=== PATIENT | male | born 2000 ===

== ENCOUNTER 2020-08-24 23:35 | Emergency (ER) | payer MEDICAID, SELFPAY ==
[2020-08-25 00:19] VITALS: BP 109/66; PULSE 73; RESP 16; O2SAT 96; BMI 19.3
--- NOTE | 2020-08-25 00:43 | PC.NURSE ---
pt tolerated sutures to left thumb well, family at bedside.
--- NOTE | 2020-08-25 00:48 | ED.EXTPRO ---
HPI - Extremity Problem General Chief complaint: Extremity Injury, Upper Stated complaint: LAC ON FINGER/SEIZURE Time Seen by Provider: 08/25/20 00:19 Source: patient and family Limitations: no limitations History of Present Illness HPI Narrative: 20-year-old male presents with past medical history of seizure disorder laceration to the left lateral thumb with a syncopal episode and seizure. He was prying open frozen hamburger patties, the knife slipped and he cut his thumb. When he saw the laceration and the blood, he had a syncopal episode, when his mom will come up, patient had seizure like activity. Patient is up-to-date on his Tdap vaccine. Patient is alert oriented at this time, reports pain only to the thumb. He denies headache, neck pain, chest pain or pressure, palpitations, shortness breath, abdominal pain, abdominal distention, fevers, chills, nausea, vomiting, diarrhea, constipation, or any other concerning symptoms. MD Complaint: extremity pain Onset (ago): hour(s) (Within the hour of arrival) Pain Consistency: constant Location: left (thumb) Severity scale (1-10): 8 Quality: burning Radiation: none Exacerbating factors: range of motion and palpation Associated symptoms: denies other symptoms Related Data Previous Rx's Medication Instructions Recorded ibuprofen 600 mg PO Q8H PRN #20 tab 08/25/20 Allergies Allergy/AdvReac Type Severity Reaction Status Date / Time No Known Allergies Allergy Verified 08/25/20 00:27 [No Known Allergies*] Review of Systems Review of Systems: Constitutional: Positive syncopal episode, No Fever, No Chills ENT/Mouth: No Ear Pain, No Hoarseness, No sore throat Eyes: No Eye Pain, No Swelling, No Redness, No Foreign Body Cardiovascular: No Chest Pain, No SOB Respiratory: No Cough, No Dyspnea Gastrointestinal: No Nausea, No Vomiting, No Diarrhea, No abdominal Pain Genitourinary: No Dysuria, No Hematuria Musculoskeletal: positive left thumb pain, No Myalgias, No Joint Swelling Skin: Positive left lateral thumb laceration, No rash Neuro: No Weakness, No Numbness, No Paresthesias, No Loss of Consciousness, No Dizziness, No Headache Psych: No Anxiety/Panic, No Depression Heme/Lymph: no easy bruising, no Lymphadenopathy Endocrine: No Polyuria, No Polydipsia Yes all other systems are reviewed and are negative [facility] Past Medical History Attestation statement: The following information was validated with the patient. Source: old records reviewed Medical History Seizure Social History Social History Advance Directives: No Advance Directives Information Provided: No Physical Exam Vital Signs: Vital Signs: Last Vital Signs Pulse 73 08/25/20 00:19 Resp 16 08/25/20 00:19 BP 109/66 08/25/20 00:19 Pulse Ox 96 08/25/20 00:19 Body Mass Index 19.3 Appearance: Alert. Oriented X3. No acute distress. Eyes: Pupils equal, round and reactive to light. ENT: Pharynx normal. Neck: Normal inspection. Neck supple. CVS: Normal heart rate and rhythm. Pulses normal. Respiratory: No respiratory distress. Breath sounds normal. Abdomen: Soft and nontender. Skin: 2 cm laceration to the left thumb, Skin warm and dry. Normal skin color. Normal skin turgor. Extremities: No lower extremity edema. Neuro: No motor deficit. No sensory deficit. Course Course Course Narrative: 20-year-old male past medical history of seizure disorder presents with his mother at bedside for left thumb laceration, syncopal episode and seizure. Patient was trying to pry apart frozen hamburger patties with a knife, the knife slipped and cut the left side of his thumb. When he noted to be bleeding he had a syncopal episode. Mom's mother witnessed the whole event. Patient was unresponsive for about a minute, once he regained consciousness he had some seizure activity. Mother states that he has been worked up for seizure activity with a sleep study and was followed up by Cardiology. Patient is not on any seizure medications at this time. I feel the syncopal episode is related to vasovagal symptoms, discussed suture repair with mother and patient. Prepped and draped in sterile fashion, patient tolerated procedure well. Please refer to procedure note for full details. I will make a referral for Neurology. Mother verbalized understanding of and agrees to plan of care discharge home. Procedures Laceration Laceration 1: Site: hand Side (If applicable): left Size (cm): 2 Description: linear Depth: simple, single layer Local Anesthetic: lidocaine 2% Amount of anesthesia used (mL): 1 Pre-repair: wound explored, irrigated extensively and deep structures intact Skin layer closed with: nylon Size (cm): 5-0 Number of sutures: 3 Technique: simple, interrupted MDM - Extremity (Nontraumatic) MDM Narrative Medical decision making narrative: Laceration, vasovagal syncope, seizure Medical Records Attestation: I reviewed the patient's medical records. Discharge Plan Discharge Clinical Impression: Laceration, Syncope, vasovagal, Seizure Patient Disposition: Home, Self-Care Instructions: Syncope (ED), Finger Laceration (ED) Additional Instructions: Your child was evaluated for laceration, vasovagal syncope and seizure. Please return in 10 days to have sutures removed from the left thumb. I have referred you to neurology Dr. Tamez for suspected seizure disorder. Please call and request an appointment. Thank you for choosing this emergency department for evaluation. Please follow-up with primary care physician as needed. Return to the emergency department for any new, concerning, or worsening symptoms. Prescriptions: New ibuprofen 600 mg tablet 600 mg PO Q8H PRN (Reason: pain) Qty: 20 RF: 0 Referrals: Duncan Tamez MD [Physician] - 2 days (Seizure disorder, currently not on any medications)
[2020-08-25] MEDS: Ibuprofen 600 MG TABLET PO (01:08)
[2020-08-25] MEDS: Lidocaine HCl 2 % MPF 5 ML VIAL SUBCUT (01:08)
== END 2020-08-25 01:27 | disposition home or self-care (01) ==
PROVIDERS: Emergency Provider Internal Medicine; PCP Family Medicine
DX: S61.412A Laceration without foreign body of left hand, initial encounter (principal); R56.9 Unspecified convulsions; R55 Syncope and collapse; W26.0XXA Contact with knife, initial encounter; Y93.G3 Activity, cooking and baking; Y92.9 Unspecified place or not applicable; Y99.9 Unspecified external cause status
CPT/HCPCS: 12001; 99283

== ENCOUNTER → 2021-07-24 13:13 | Outpatient (REF) | payer MEDICAID, SELFPAY ==
--- NOTE | 2021-07-24 13:19 | ECG_ITS ---
Hook-up date: 2021-07-24 13:28:00 Duration: 47:59:00 Test Indications: UNSPEC. BRADYCARDIA Medications: 69911 QRS complexes 1 Ventricular ectopics which represent <1 % of total QRS comp. 26 Supraventricular ectopics which represent <1 % of total QRS comp. * Paced QRS complexs which represent % of total QRS comp. VENTRICULAR ECTOPY 1 Isolated 0 Bigeminal Cycles 0 Couplets 0 Runs 0 Beats in Runs * Beats LONGEST at * BPM at :: -- * Beats FASTEST at * BPM at :: -- SUPRAVENTRICULAR ECTOPY 26 Isolated 0 Couplets 0 Runs 0 Beats in Runs * Beats LONGEST at * BPM at :: -- * Beats FASTEST at * BPM at :: -- HEART RATES 33 MIN at 04:10:59 2021-07-25 64 AVG 123 MAX at 13:50:12 2021-07-24 LONGEST RR 2.2080 secs at 04:10:50 2021-07-25 S-T LEVELS Channel 1 - 128 mm at 13:28:00 2021-07-24 - 128 mm at 13:28:00 2021-07-24 Channel 2 - 128 mm at 13:28:00 2021-07-24 - 128 mm at 13:28:00 2021-07-24 Channel 3 - 128 mm at 03:24:71 -- - 128 mm at 03:24:71 Basic rhythm Normal sinus rhythm Frequent Sinus bradycardia , 34% of time HR < 60 bpm Slowest HR of 33 bpm and one episode of second degree AV block during sleep hours. Consider sleep study No diary submitted Referred By: Arelis Virk Overread By: EAN LEE MD
== END ==
LOC: HO.CARD 13:13
PROVIDERS: PCP Family Medicine; Visit Provider Family Medicine
DX: R00.1 Bradycardia, unspecified (principal)
CPT/HCPCS: 93225; 93226

== ENCOUNTER 2021-09-10 18:42 | Outpatient (REF) | payer MEDICAID, SELFPAY ==
--- NOTE | ~2021-09-10 | MR_ITS ---
EXAMINATION: MR BRAIN WITHOUT AND WITH CONTRAST CLINICAL INFORMATION: Epilepsy. COMPARISON: Head CT from 06/12/2019. TECHNIQUE: Multiplanar, multisequence imaging of the brain was acquired on a 3 Rasheeda magnet before and after the intravenous administration of 5 mL of Gadavist. Slightly limited study with motion artifacts. FINDINGS: No diffusion abnormalities are identified to suggest an acute infarct. The ventricles are normal in size. No mass effect or midline shift is seen. No brain parenchymal signal abnormality is noted. No extra-axial fluid collections are seen. The brainstem and cerebellum are normal. There is no abnormal parenchymal or leptomeningeal enhancement. No focal cortical dysplasia or migrational abnormality is seen. The hippocampi are normal in appearance. The gradient refocused acquisition demonstrates no pathologic magnetic susceptibility artifact to indicate underlying acute or chronic blood products. 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 The craniovertebral junction and marrow signal are normal. The orbits and pituitary axis appear normal. The major intracranial flow voids at the level of the [place] are preserved. The dural venous sinus flow voids are maintained. The mastoid air cells are well aerated. There is a small retention cyst in the left maxillary sinus and mild left frontoethmoid size mucosal thickening. MR/MR head/brain wo/w con IMPRESSION: Aside from a small pineal cyst with an internal fluid-fluid level, relatively normal limited MRI of the brain with motion artifacts. No hippocampal pathology or epileptogenic focus identified.
== END 2021-09-10 18:43 | disposition home or self-care (01) ==
LOC: HO.MRI 18:42
PROVIDERS: Visit Provider Psychiatry & Neurology Neurology
DX: G40.909 Epilepsy, unspecified, not intractable, without status epilepticus (principal)
CPT/HCPCS: 70553; A9585

== ENCOUNTER → 2021-12-25 10:35 | Outpatient (REF) | payer MEDICAID, SELFPAY ==
--- NOTE | 2021-12-25 10:45 | CA_ITS ---
Acquisition Time: 2021-12-25 11:19:05 Total Exercise Time: 00:11:10 Test Indications: Abnormal ECG Medications: PRO AIR Protocol: KASSIE Max HR: 148 BPM 74% of Pred: 199 BPM Max BP: 124/064 mmHG Max Work Load: 13.4 METS Exercise stress ECHO using Kassie protocol total of 11 min 10 sec, METS 13.40 and MAPHR up to 74%. Pt tolerated well, HR only up to 148 Occasional PAC's in recovery period. No ischemic changes seen. ECHO images at rest and immediately after peak exercise HR reached. Definity used IV. Normotensive response to exercise. Test reviewed with Dr. Edwards. Referred By: Dayo Del Valle Overread By: Dalia Ortega NP
== END ==
LOC: HO.CARD 10:35
PROVIDERS: PCP Family Medicine; Visit Provider Internal Medicine Cardiovascular Disease
DX: R07.89 Other chest pain (principal)
CPT/HCPCS: 93350; Q9957

== ENCOUNTER 2023-04-10 22:38 | Emergency (ER) | payer MEDICAID, SELFPAY ==
[2023-04-10 22:39] VITALS: BP 117/70; PULSE 86; RESP 16; TEMP 37.2; O2SAT 98
--- NOTE | 2023-04-10 23:09 | ED.WOUNDLAC ---
HPI - Wound/Laceration General Chief Complaint: Wound/Laceration Stated Complaint: Fall/ lac to chin/ETOH Time Seen by Provider: 04/10/23 22:52 Source: patient Mode of arrival: ambulatory Limitations: no limitations History of Present Illness HPI narrative: 23-year-old male who presents emergency department for evaluation of trip, fall and chin laceration. Patient states that he was drinking alcohol this evening. He was walking down a dark alley. He believes he tripped over a rock and fell landing on his chin. When he got home, his family noted that he had a laceration to his rene in his mother brought him to the emergency department for evaluation. The patient has no complaints. He denies headache, neck pain, jaw pain. He does not know when his last tetanus shot was given. Related Data Previous Rx's Medication Instructions Recorded ibuprofen 600 mg tablet 600 mg PO Q8H PRN pain #20 tabs 08/25/20 Allergies Allergy/AdvReac Type Severity Reaction Status Date / Time No Known Allergies Allergy Verified 08/25/20 00:27 [No Known Allergies*] Review of Systems Review of Systems: Yes all other systems are reviewed and are negative [facility] Past Medical History [facility] Narrative: Social history: Patient does smoke cigarettes, he does drink alcohol on this to drinking today, he denies drug use. Medical History Seizure Social History Social History Alcohol intake: current Alcohol intake frequency: a few times a month Smoked in Last 30 Days: Yes Use of substances other than those prescribed or required for medical reasons: Yes Substance Use Type: Marijuana Substance Use Frequency: Daily Advance Directives: No Advance Directives Information Provided: Yes Physical Exam Vital Signs: Vital Signs: Last Vital Signs Temp 98.9 F 04/10/23 22:39 Pulse 86 04/10/23 22:39 Resp 16 04/10/23 22:39 BP 117/70 04/10/23 22:39 Pulse Ox 98 04/10/23 22:39 O2 Del Method Room Air 04/10/23 22:39 BMI result Body Mass Index 20.0 Vital signs were normal Exam: General: Awake, alert in no distress, pleasant, cooperative, answers all questions appropriately Head: Normocephalic, patient has a 2.5 cm laceration to his chin, full skin thickness EENT: PERRL, Lids normal, sclera normal, conjunctiva normal, nose normal , ears normal, throat without erythema or exudates Neck: Supple, no adenopathy, no trachea midline or C-spine tenderness Lung: breath sounds symmetric, no wheezing, rales or rhonchi Chest: symmetric movement, nontender Heart: regular rate and rhythm, normal S1, S2 no murmurs or rubs Abdomen: soft, non-tender, nondistended, normal bowel sounds Back: no vertebral tenderness, no CVAT Extremities: no deformities, moves all extremities symmetrically Neuro: Awake, alert, oriented, normal speech, cranial nerves intact, moves all extremities symmetrically Psych: Pleasant, cooperative Medical Decision Making Medical Decision Making MDM Narrative: 23-year-old male with a seizure disorder who presents emergency department for evaluation of trip and fall causing a laceration to his chin. He does admit to drinking alcohol this evening. Patient's exam is significant for a chin laceration which required suture repair. Otherwise exam was unremarkable. Patient's laceration was repaired with 5.0 Vicryl Rapide x2 sutures internally and 4.0 monofilament nylon x5 on the outside. Patient tolerated the procedure well. He was discharged home with printed and verbal instructions Differential Diagnosis Differential Diagnoses: The differential diagnosis associated with the presentation includes Differential diagnosis includes was not limited to closed head injury, skull fracture, intracranial bleed, jaw fracture, chin laceration, Procedures Laceration Chin laceration: Site: other (Chin) Size (cm): 3.5 Description: linear Depth: involves muscle layer Local Anesthetic: lidocaine 1% Amount of anesthesia used (mL): 5 Pre-repair: wound explored and irrigated extensively Skin layer closed with: nylon Size (cm): 5-0 Number of sutures: 5 Technique: simple, interrupted Muscle layer closed with: vicryl (Vicryl repeat) Size: 5-0 Number of sutures: 5 Technique: simple, interrupted Discharge Plan Discharge Clinical Impression: Alcohol intoxication Qualifiers: Complication of substance-induced condition: uncomplicated Qualified Code(s): F10.920 - Alcohol use, unspecified with intoxication, uncomplicated Fall Qualifiers: Encounter type: initial encounter Qualified Code(s): W19.XXXA - Unspecified fall, initial encounter Chin laceration Qualifiers: Encounter type: initial encounter Qualified Code(s): S01.81XA - Laceration without foreign body of other part of head, initial encounter Patient Disposition: Home, Self-Care Instructions: Laceration (ED) Additional Instructions: Your chin laceration was repaired with 2 dissolve will sutures on the inside and 5 non dissolve will sutures on the outside. The sutures need to be removed in 10-14 days by either your doctor, in urgent care clinic or the emergency department. Apply bacitracin twice a day to the laceration till the sutures are removed. Watch for signs of infection which would include redness, swelling, drainage of pus, red streaks going away from the wound. You received a tetanus diptheria and per test this vaccination ( Tdap). This is good for 5 years and after 5-10 years you will need a repeat Tdap vaccination for contaminated cuts. Take ibuprofen 200 mg pills, 2 pills every 6 hours as needed for pain or fever. Follow-up with your doctor in 2 days. Please return to the emergency department if your symptoms get worse or if you develop any symptoms that are concerning to you. Prescriptions: No Action ibuprofen 600 mg tablet 600 mg PO Q8H PRN (Reason: pain) Qty: 20 0RF
[2023-04-10] MEDS: Ibuprofen 400 MG TABLET PO (23:17)
[2023-04-10] MEDS: Lidocaine HCl 1 % MPF 5 ML VIAL INFILTRATI (23:17)
[2023-04-10] MEDS: Diphth,Pertus(ACell),Tet Adult 0.5 ML SYRINGE IM (23:17)
[2023-04-10] MEDS: Bacitracin Oint 0.9 GM PACKET 1 APPL TOPICAL (23:48)
== END 2023-04-10 23:54 | disposition home or self-care (01) ==
PROVIDERS: Emergency Provider Emergency Medicine Emergency Medical Services; PCP Family Medicine
DX: F10.920 Alcohol use, unspecified with intoxication, uncomplicated (principal); Y90.9 Presence of alcohol in blood, level not specified; S01.81XA Laceration without foreign body of other part of head, initial encounter; W01.0XXA Fall on same level from slipping, tripping and stumbling without subsequent striking against object, initial encounter; Y93.01 Activity, walking, marching and hiking; Y92.488 Other paved roadways as the place of occurrence of the external cause; Y99.9 Unspecified external cause status; F12.90 Cannabis use, unspecified, uncomplicated; F17.200 Nicotine dependence, unspecified, uncomplicated
CPT/HCPCS: 12013; 90471; 90715; 99284

== ENCOUNTER 2024-01-08 18:27 | Emergency (ER) | payer MEDICAID, SELFPAY ==
--- NOTE | ~2024-01-08 | US_ITS ---
EXAMINATION: US SCROTUM CLINICAL INFORMATION: Left-sided testicular pain.. COMPARISON: Scrotal ultrasound October 20, 2019 TECHNIQUE: A sonogram of the scrotum was performed assessing jacobs-scale appearance and color Doppler flow. Spectral Doppler analysis of the arterial and venous flow were performed in the testes bilaterally. FINDINGS: RIGHT: Right testicle measures 3.7 x 2.6 x 3.1 cm, volume 13.6 mL. No focal testicular parenchymal lesions are visualized. Spectral Doppler analysis of the arterial and venous flow is normal in the right testis. Right epididymal head is normal in size. Small right-sided hydrocele. Right epididymal Doppler flow is normal. LEFT: Left testicle measures 3.4 x 2.4 x 3 cm, volume 12.7 mL. No focal testicular parenchymal lesions are visualized. Spectral Doppler analysis of the arterial and venous flow is normal in the left testis. Left epididymal head is normal in size. No left hydrocele or varicocele is seen. Left epididymal Doppler flow is normal. US/US scrotum doppler IMPRESSION: 1. Normal ultrasound of the right and left testicle.
--- NOTE | ~2024-01-08 | US_ITS ---
EXAMINATION: US SCROTUM CLINICAL INFORMATION: Left-sided testicular pain.. COMPARISON: Scrotal ultrasound October 20, 2019 TECHNIQUE: A sonogram of the scrotum was performed assessing jacobs-scale appearance and color Doppler flow. Spectral Doppler analysis of the arterial and venous flow were performed in the testes bilaterally. FINDINGS: RIGHT: Right testicle measures 3.7 x 2.6 x 3.1 cm, volume 13.6 mL. No focal testicular parenchymal lesions are visualized. Spectral Doppler analysis of the arterial and venous flow is normal in the right testis. Right epididymal head is normal in size. Small right-sided hydrocele. Right epididymal Doppler flow is normal. LEFT: Left testicle measures 3.4 x 2.4 x 3 cm, volume 12.7 mL. No focal testicular parenchymal lesions are visualized. Spectral Doppler analysis of the arterial and venous flow is normal in the left testis. Left epididymal head is normal in size. No left hydrocele or varicocele is seen. Left epididymal Doppler flow is normal. US/US scrotum IMPRESSION: 1. Normal ultrasound of the right and left testicle.
[2024-01-08 18:44] VITALS: BP 124/64; PULSE 81; RESP 18; TEMP 36.7; O2SAT 98; BMI 17.2
--- NOTE | 2024-01-08 18:44 | ED_ITS ---
HPI - Male Genitourinary General Chief complaint: Urogenital-Male Stated complaint: L testicle pain off/ on for 2-3 days Time Seen by Provider: 01/08/24 20:11 Source: patient Mode of arrival: ambulatory Limitations: no limitations History of Present Illness ED Provider: therese DUBOIS Narrative: Patient complaining of pain about left testicle off and on for last 2 days no swelling of the testicle as such no history of torsion in the past no urinary complaints patient feeling better otherwise Related Data Previous Rx's ?Medication ?Instructions ?Recorded ibuprofen 600 mg tablet 600 mg PO Q8H PRN pain #20 tabs 08/25/20 Allergies Allergy/AdvReac Type Severity Reaction Status Date / Time No Known Allergies Allergy Verified 01/08/24 18:49 [No Known Allergies*] Review of Systems 2 Review of Systems: Yes all other systems are reviewed and are negative PMFSH Past Medical History Medical History Seizure Social History Social History Alcohol intake: current Alcohol intake frequency: a few times a month Smoked in Last 30 Days: No Use of substances other than those prescribed or required for medical reasons: No Substance Use Type: Marijuana Advance Directives: No Advance Directives Information Provided: No Do you have a plan to hurt others: No Plan Physical Exam 2 Vital Signs: Vital Signs: Last Vital Signs Temp 98.3 F 01/08/24 21:44 Pulse 63 01/08/24 21:44 Resp 18 01/08/24 21:44 BP 104/59 L 01/08/24 21:44 Pulse Ox 98 01/08/24 21:44 O2 Del Method Room Air 01/08/24 21:44 BMI result Body Mass Index 17.2 : Male genitals images: 1. Soft tissue swelling about the left testicle in right position and nontender Course Course Course Narrative: This is a Rapid Medical Examination (RME) performed by Nohelia Lee PA-C in triage. Full HPI, ROS, assessment and treatment plan per primary provider in the Main ED. 23 yo male here w/ intermittent left testicular pain x2-3 days. reports the testicle is red. cannot decipher if if it swollen. denies dysuria, penile discharge. denies concern for STIs. + exam deferred d/t privacy concerns in triage. Plan: UA, CT/NG, scrotal ultrasound/Doppler Medical Decision Making Medical Decision Making [facility] Narrative: Patient with slightly tender above the left testicle likely small spermatocele ultrasound was negative for torsion or any significant lesion Differential Diagnosis Differential Diagnoses: The differential diagnosis associated with the presentation includes Lab Data [facility] Lab Attestation statement: I reviewed the patient's lab results. Labs: Lab Results 01/08/24 Range/Units 20:16 Urine Color Yellow Urine Appearance Clear Urine pH 7.5 (5.0-9.0) Ur Specific E[place] <= 1.005 (1.005-1.025) Urine Protein Negative (Neg-Trace) mg/dL Urine Glucose (UA) Negative (Negative) mg/dL Urine Ketones Negative (Negative) mg/dL Urine Blood Negative (Negative) Urine Nitrite Negative (Negative) Ur Leukocyte Esterase Negative (Negative) Independent Interpretation I performed an independent interpretation of an: Ultrasound Radiology Impression Discussion of test interpretation with radiology: I have reviewed the radiologist's reading. Radiologist Impression: [place] [id number] Ultrasound Report Signed Patient: Silas Penn MR#: [id number] : 2000 Acct:[id number] Age/Sex: 23 / M ADM Date: 01/08/24 Loc: .ED Attending Dr: Ordering Physician: Madhavi Lee Date of Service: 01/08/24 Procedure(s): US scrotum Accession Number(s): [id number] cc: Madhavi Lee; Arelis Virk MD~ EXAMINATION: US SCROTUM CLINICAL INFORMATION: Left-sided testicular pain.. COMPARISON: Scrotal ultrasound October 20, 2019 TECHNIQUE: A sonogram of the scrotum was performed assessing jacobs-scale appearance and color Doppler flow. Spectral Doppler analysis of the arterial and venous flow were performed in the testes bilaterally. FINDINGS: RIGHT: Right testicle measures 3.7 x 2.6 x 3.1 cm, volume 13.6 mL. No focal testicular parenchymal lesions are visualized. Spectral Doppler analysis of the arterial and venous flow is normal in the right testis. Right epididymal head is normal in size. Small right-sided hydrocele. Right epididymal Doppler flow is normal. LEFT: Left testicle measures 3.4 x 2.4 x 3 cm, volume 12.7 mL. No focal testicular parenchymal lesions are visualized. Spectral Doppler analysis of the arterial and venous flow is normal in the left testis. Left epididymal head is normal in size. No left hydrocele or varicocele is seen. Left epididymal Doppler flow is normal. US/US scrotum IMPRESSION: 1. Normal ultrasound of the right and left testicle. Discharge Plan Discharge Clinical Impression: Single spermatocele of left epididymis Patient Disposition: Home, Self-Care Instructions: Spermatocele (ED) Additional Instructions: No treatment is indicated at this time If pain continues or size get bigger than 2 cm then you to see a urologist Prescriptions: No Action ibuprofen 600 mg tablet 600 mg PO Q8H PRN (Reason: pain) Qty: 20 0RF Referrals: Tyler Wen MD [Physician] - 2 weeks Interventions: ED Discharge Assessment Last Done: 01/08/24 21:44 Discharge Date/Time: 01/08/24 21:45 Print Language: [place]
[2024-01-08 20:24] LABS: Appearance Urine Clear; Color Urine Yellow; Glucose Urine UA Negative (Negative); Leukocyte Esterase Urine Negative (Negative); Nitrite Urine Negative (Negative); PH 7.5 (5.0-9.0); Specific Gravity - Urine <= 1.005 (1.005-1.025); Urine Blood Negative (Negative); Urine Ketones Negative (Negative); Urine Protein Negative (Neg-Trace)
[2024-01-08 20:39] VITALS: BP 104/59; PULSE 63; RESP 18; TEMP 36.8; O2SAT 98
[2024-01-08 21:44] VITALS: BP 104/59; PULSE 63; RESP 18; TEMP 36.8; O2SAT 98
[2024-01-09 01:56] LABS: CT PCR NOT DETECTED (Not Detect.); NG PCR NOT DETECTED (Not Detect.)
== END 2024-01-08 21:45 | disposition home or self-care (01) ==
PROVIDERS: Physician Assistant Medical; Emergency Provider Internal Medicine; PCP Family Medicine
DX: N43.41 Spermatocele of epididymis, single (principal); N45.1 Epididymitis; N50.812 Left testicular pain
CPT/HCPCS: 76870; 81003; 87491; 87591; 93975; 99284

== ENCOUNTER 2024-03-09 12:48 | Outpatient (AMB) | payer MEDICAID, SELFPAY ==
--- NOTE | 2024-03-09 13:07 | A.OFFVIS_ITS ---
Intake Visit Reasons: left hydrocele Intake Note: New Patient presents for initial visit for left hydrocele Urology Medications: none Blood Thinner: none Brush And Broom Clipper Required: No Traffic Checker: Traffic Checker offered & declined Accompanied by: Unknown Allergies No Known Allergies [No Known Allergies*] Allergy (Verified 03/09/24 13:37) Medication List - Last Reconciled 03/09/24 by GUI Carranza No Known Home Meds HPI Comments Details: Silas is a very pleasant 24-year-old male patient of who was accompanied by his mom at today's office visit. He has a past medical history of seizures, recreational marijuana use, and nicotine dependence. He presents to the office today as a new patient for ongoing left-sided testicular/scrotal pain he has been experiencing. In discussion with the patient and his mom today he reports having went to the ER approximately 2 months ago for intermittent left-sided testicular/scrotal pain he had been experiencing at which time a scrotal ultrasound was ordered and performed. These results were reviewed with the patient today. Normal bilateral scrotal ultrasound. On exam today the penis is uncircumcised left-sided epididymal head tenderness noted otherwise no lesions and or masses palpated. No open areas or drainage noted. He reports pain feeling like a burning sensation to left posterior sided of the scrotum. He reports feeling when applying cold and or heat to this area symptoms subside. We discussed varicocele as well as possible epididymitis given exam findings. When asked he denies being sexually active. He otherwise denies any bothersome urinary issues. He denies urinary urgency, urinary frequency, incontinence, nocturia, hematuria, dysuria, foul smelling urine, changes to urinary stream, flank pain, fever, and or chills. He is happy with his current voiding parameters. He denies any trauma to the area. Cremasteric reflex present. [facility] Medical History Seizure Social History Alcohol intake: current Alcohol intake frequency: a few times a month Substance Use Type: Marijuana Review of Systems Const All systems reviewed & are unremarkable except as noted in HPI and below Physical Exam Const General: cooperative, healthy appearing, comfortable, no acute distress, well developed, alert and awake Orientation/consciousness: patient oriented x3 Limitations: no limitations HEENT Head: Yes normal to inspection, Yes normocephalic and Yes atraumatic Ears: hearing grossly normal bilaterally Eyes General: appearance normal, both eyes and all related structures Neck Neck: Yes normal visual inspection and Yes trachea midline Chest Chest palpation & inspection: normal inspection of the chest Resp Effort & Inspection: normal respiratory effort and able to speak in complete sentences Cardio Rate: regular rate GI Inspection: Yes normal to inspection General: Yes no CVA tenderness Back/Spine/Pelvis Back: no CVA tenderness Skin General skin exam: no rashes or lesions noted Neuro General: patient oriented x3 Extrem General: Yes normal to inspection Psych Appearance: grossly normal and well kempt Mental Status: mental status grossly normal Speech and movement: Normal speech and movement present and Clear speech present Affect: normal affect Attitude: cooperative Thought process: Normal thought process present Thought content: Normal thought content present Insight: Fair insight present (Psych) Judgement: Fair judgement present (Psych) Results AMB Urinalysis, Automated UA Leukoctes 0 Brown/uL Last Edit by Ashley Chou on 03/09/24 13:29 UA Nitrite Last Edit by Ashley Chou on 03/09/24 13:29 UA Urobilinogen 0.2 mg/dL Last Edit by Ashley Chou on 03/09/24 13:29 UA Protein 15 mg/dL Last Edit by Ashley Chou on 03/09/24 13:29 UA pH 6.0 Last Edit by Ashley Chou on 03/09/24 13:29 UA Blood 0 [place]/uL Last Edit by Ashley Chou on 03/09/24 13:29 UA Specific [place] 1.020 Last Edit by Ashley Chou on 03/09/24 13:29 UA Ketone Last Edit by Ashley Chou on 03/09/24 13:29 UA Bilirubin 0 mg/dL Last Edit by Ashley Chou on 03/09/24 13:29 UA Glucose 0 mg/dL Last Edit by Aslhey Chou on 03/09/24 13:29 Results Reviewed Results Reviewed: Laboratory Last Values Urine pH (Auto) 6.0 03/09/24 13:22 Specific [place] (Auto) 1.020 03/09/24 13:22 Urine Protein (Auto) 15 mg/dL 03/09/24 13:22 Glucose (UA)(Auto) 0 mg/dL 03/09/24 13:22 Urine Blood (Auto) 0 [place]/uL 03/09/24 13:22 Urine Bilirubin (Auto) 0 mg/dL 03/09/24 13:22 Urine Urobilinogen (Auto) 0.2 mg/dL 03/09/24 13:22 Leukocyte Esterase (Auto) 0 [place]/uL 03/09/24 13:22 Date of Service: 01/08/24 EXAMINATION: US SCROTUM FINDINGS: RIGHT: Right testicle measures 3.7 x 2.6 x 3.1 cm, volume 13.6 mL. No focal testicular parenchymal lesions are visualized. Spectral Doppler analysis of the arterial and venous flow is normal in the right testis. Right epididymal head is normal in size. Small right-sided hydrocele. Right epididymal Doppler flow is normal. LEFT: Left testicle measures 3.4 x 2.4 x 3 cm, volume 12.7 mL. No focal testicular parenchymal lesions are visualized. Spectral Doppler analysis of the arterial and venous flow is normal in the left testis. Left epididymal head is normal in size. No left hydrocele or varicocele is seen. Left epididymal Doppler flow is normal. IMPRESSION: 1. Normal ultrasound of the right and left testicle. Assessment & Plan Assessment & Plan (1) Epididymitis: Code(s): N45.1 - Epididymitis Category: Medical (2) Left varicocele: Code(s): I86.1 - Scrotal varices Category: Medical Plan In office urinalysis results reviewed with the patient today; as noted above. Recent scrotal ultrasound results reviewed with the patient and his mother today; as noted above. Discussed potential for epididymitis as well as varicocele Start doxycycline as discussed and prescribed. Discussed worsening symptoms. Discussed, educated, and stressed the importance of limiting/quitting smoking for overall health and well-being. Reassurance provided. Follow-up in 1 month; or sooner with any issues, concerns, and or questions. Orders: Orders AMB Urinalysis Automated Today Z13.9 - Encounter for screening, unspecified Medications: New doxycycline hyclate 100 mg PO BID 14 days 28 tabs 0RF N39.0 - Urinary tract infection, site not specified, N45.1 - Epididymitis Discontinued ibuprofen Discontinued Reason: Patient no longer taking 600 mg PO Q8H PRN 20 tabs 0RF pain Patient Instructions: The patient had an opportunity to ask questions regarding the treatment plan. All questions were answered. Physical exam, labs, and imaging were discussed and reviewed in detail. As well as risks, benefits, and discussion of treatment choices. No major barriers to understanding were identified. The patient expressed understanding and agreement with the above treatment plan. The patient was made aware they should contact our office by phone for worsening of their current condition, the appearance of new symptoms, or with any questions or concerns. Compliance is encouraged with any medications and follow up testing that is ordered. It is a privilege to be allowed the opportunity to participate in? your urological care.? Again, if you have any questions or concerns If you have any questions or concerns please do not hesitate to contact me. The office is [phone]. This note is constructed using voice recognition software. While every effort has been made to ensure accuracy business support professional errors may have been included. Yours sincerely, GUI Carranza Coding Level of Care Code New Pt Level 4 (86353) Diagnoses Epididymitis N45.1 Left varicocele I86.1
== END 2024-03-09 14:07 | disposition home or self-care (01) ==
PROVIDERS: PCP Family Medicine; Visit Provider Nurse Practitioner Family
DX: N45.1 Epididymitis (principal); I86.1 Scrotal varices; Z13.9 Encounter for screening, unspecified
CPT/HCPCS: 99204

== ENCOUNTER → 2024-03-09 12:48 | Outpatient (BNVA) | payer MEDICAID, SELFPAY | PROVIDERS: PCP Family Medicine; Visit Provider Nurse Practitioner Family | DX: N45.1 Epididymitis (principal); I86.1 Scrotal varices | CPT/HCPCS: 81003; 99212 ==

== ENCOUNTER 2024-04-27 12:46 | Outpatient (AMB) | payer MEDICAID, SELFPAY ==
--- NOTE | 2024-04-27 12:52 | MHC.OFFVIS ---
Intake Visit Reasons: 1m follow up Intake Note: Patient presents today for follow up visit for left hydrocele Urology Medications: none Blood Thinner: none Donor Recruitment Manager Required: No Wood Flour Miller: Wood Flour Miller offered & declined Accompanied by: Unknown Allergies No Known Allergies [No Known Allergies*] Allergy (Verified 04/27/24 13:15) Medication List - Last Reviewed 04/27/24 by Ashley Chou No Known Home Meds HPI Comments Details: Silas is a very pleasant 24-year-old male patient of who was accompanied by his mom at today's office visit. He has a past medical history of seizures, recreational marijuana use, and nicotine dependence. He presents to the office today for follow-up of his left testicular scrotal pain he had been experiencing. Of note, patient was seen approximately 6 weeks ago at which time he was prescribed doxycycline for epididymitis. In discussion with the patient today he reports noting pain has since subsided however he does feel left-side of the scrotum/testicle sits lower than it previously had. On exam today the penis is uncircumcised. No open areas or drainage noted. He denies being sexually active. He otherwise denies any bothersome urinary issues. He denies urinary urgency, urinary frequency, incontinence, nocturia, hematuria, dysuria, foul smelling urine, changes to urinary stream, flank pain, fever, and or chills. He is happy with his current voiding parameters. He denies any trauma to the area. Cremasteric reflex present. [facility] Medical History Seizure Social History Alcohol intake: current Alcohol intake frequency: a few times a month Substance Use Type: Marijuana Review of Systems Const All systems reviewed & are unremarkable except as noted in HPI and below Physical Exam Const General: cooperative, healthy appearing, comfortable, no acute distress, well developed, alert and awake Orientation/consciousness: patient oriented x3 Limitations: no limitations HEENT Head: Yes normal to inspection, Yes normocephalic and Yes atraumatic Ears: hearing grossly normal bilaterally Eyes General: appearance normal, both eyes and all related structures Neck Neck: Yes normal visual inspection and Yes trachea midline Chest Chest palpation & inspection: normal inspection of the chest Resp Effort & Inspection: normal respiratory effort and able to speak in complete sentences Cardio Rate: regular rate GI Inspection: Yes normal to inspection General: Yes no CVA tenderness Back/Spine/Pelvis Back: no CVA tenderness Skin General skin exam: no rashes or lesions noted Neuro General: patient oriented x3 Extrem General: Yes normal to inspection Psych Appearance: grossly normal and well kempt Mental Status: mental status grossly normal Speech and movement: Normal speech and movement present and Clear speech present Affect: normal affect Attitude: cooperative Thought process: Normal thought process present Thought content: Normal thought content present Insight: Fair insight present (Psych) Judgement: Fair judgement present (Psych) Results AMB Urinalysis, Automated UA Leukoctes 0 Brown/uL Last Edit by [employer] on 04/27/24 13:18 UA Nitrite Negative Last Edit by [facility] on 04/27/24 13:18 UA Urobilinogen 0.2 mg/dL Last Edit by [employer] [facility] on 04/27/24 13:18 UA Protein 0 mg/dL Last Edit by [facility] on 04/27/24 13:18 UA pH 6.0 Last Edit by [employer] [facility] on 04/27/24 13:18 UA Blood 0 [place]/uL Last Edit by [employer] [facility] on 04/27/24 13:18 UA Specific [place] 1.010 Last Edit by [employer] on 04/27/24 13:18 UA Ketone Last Edit by [facility] on 04/27/24 13:18 UA Bilirubin 0 mg/dL Last Edit [facility] on 04/27/24 13:18 UA Glucose 0 mg/dL Last Edit [facility] on 04/27/24 13:18 Assessment & Plan Assessment & Plan (1) Left varicocele: Code(s): I86.1 - Scrotal varices Category: Medical (2) Epididymitis: Code(s): N45.1 - Epididymitis Category: Medical Plan In office urinalysis results reviewed with the patient today; as noted above. Reassurance provided. Patient reports pain he had been experiencing has since subsided. He denies any bothersome urinary issues. He reports be happy with current voiding parameters. Discussed if symptoms arise to call office with any questions, concerns, and or issues. Follow-up p.r.n. Orders: Orders AMB Urinalysis Automated Today Z13.9 - Encounter for screening, unspecified Patient Instructions: The patient had an opportunity to ask questions regarding the treatment plan. All questions were answered. Physical exam, labs, and imaging were discussed and reviewed in detail. As well as risks, benefits, and discussion of treatment choices. No major barriers to understanding were identified. The patient expressed understanding and agreement with the above treatment plan. The patient was made aware they should contact our office by phone for worsening of their current condition, the appearance of new symptoms, or with any questions or concerns. Compliance is encouraged with any medications and follow up testing that is ordered. It is a privilege to be allowed the opportunity to participate in? your urological care.? Again, if you have any questions or concerns If you have any questions or concerns please do not hesitate to contact me. The office is [phone]. This note is constructed using voice recognition software. While every effort has been made to ensure accuracy director of child welfare services errors may have been included. Yours sincerely, GUI Carranza Coding Level of Care Code Est Pt Level 3 (35694) Diagnoses Left varicocele I86.1 Epididymitis N45.1
== END 2024-04-27 13:18 | disposition home or self-care (01) ==
PROVIDERS: PCP Family Medicine; Visit Provider Nurse Practitioner Family
DX: I86.1 Scrotal varices (principal); N45.1 Epididymitis; Z13.9 Encounter for screening, unspecified
CPT/HCPCS: 99213

== ENCOUNTER → 2024-04-27 12:46 | Outpatient (BNVA) | payer MEDICAID, SELFPAY | PROVIDERS: PCP Family Medicine; Visit Provider Nurse Practitioner Family | DX: I86.1 Scrotal varices (principal); N45.1 Epididymitis | CPT/HCPCS: 81003; 99212 ==

== ENCOUNTER 2024-06-23 14:21 | Outpatient (REF) | payer MEDICAID, SELFPAY ==
--- NOTE | ~2024-06-23 | XR_ITS ---
EXAMINATION: XR CHEST 2 VIEWS HISTORY: cough COMPARISON: There are no prior studies for comparison. FINDINGS: PA and lateral views of the chest are submitted. The lungs are expanded and clear. There is no pleural effusion, pneumothorax, or pulmonary vascular congestion. The heart is normal in size. The bones are intact. XR/XR chest 2V IMPRESSION: Normal examination of the chest. Electronically signed by: Javier Villareal MD 06/23/2024 02:42 PM [id number]
== END 2024-06-23 14:22 | disposition home or self-care (01) ==
LOC: HO.HHCX 14:21
PROVIDERS: Visit Provider Internal Medicine
DX: J45.20 Mild intermittent asthma, uncomplicated (principal)
CPT/HCPCS: 71046

== ENCOUNTER → 2024-06-23 14:21 | Outpatient (BNV) | payer MEDICAID, SELFPAY | PROVIDERS: Visit Provider Radiology Diagnostic Radiology | DX: R05.9 Cough, unspecified (principal) | CPT/HCPCS: 71046 ==